=== PATIENT | female | born 1965 | race African-American/Black ===

== ENCOUNTER → 2017-06-09 09:38 | Outpatient (CLI) | payer MEDICAID ==
[2015-09-24 10:34] VITALS: BMI 28.7
[~2017-06-09 09:38] MED LIST: ADVIL PM CAPLET1 TAB PO; ELIQUIS2.5 MG PO; MS CONTIN15 MG PO; MULTI-DAY VITAM1 TAB PO; OXYCODONE HCL5 MG PO; ZESTRIL20 MG PO
== END | disposition home or self-care (01) ==
LOC: D.MAMMO 06-08 15:00
DX: Z12.31 Encounter for screening mammogram for malignant neoplasm of breast (principal)

== ENCOUNTER → 2017-06-30 15:22 | Outpatient (CLI) | payer MEDICAID ==
[2015-09-24 10:34] VITALS: BMI 28.7
[~2017-06-30 15:22] MED LIST changes: +ATARAX 25 MG TA25 MG PO; +DURICEF500 MG PO; +HYDROCODONE-APA1 TAB PO; +ZOFRAN ODT4 MG/UDTAB PO
== END | disposition home or self-care (01) ==
LOC: D.LABREF 15:22
DX: M19.011 Primary osteoarthritis, right shoulder (principal); Z11.8 Encounter for screening for other infectious and parasitic diseases

== ENCOUNTER 2017-07-20 04:55 | Inpatient (IN) | payer MEDICAID ==
[2017-07-15 14:47] LABS: BASOPHILS 0.4 % (0-2); EOSINOPHILS 2.4 % (0-7); HEMATOCRIT 37.6 % (36.0-48.0); IMMATURE GRANULOCYTES 0.4 % (0-5); LYMPHOCYTES 40.6 % (15-50); MCH 28.5 pg (26.0-34.0); MCHC 31.9 g/dL (31.0-37.0); MCV 89.3 fL (80.0-100.0); MEAN PLATELET VOLUME 10.8 fL (7.4-10.4); MONOCYTES 7.8 % (2-11); NEUTROPHILS 48.4 % (40-80); PLATELET COUNT 292 10x3/uL (130-400); RBC 4.21 10x6/uL (4.00-5.40); RDW 14.3 % (11.5-14.5)
[2017-07-15 14:52] LABS: APPEARANCE CLEAR (CLEAR); BILIRUBIN NEGATIVE (NEGATIVE); COLOR YELLOW (YELLOW); GLUCOSE NEGATIVE (NEGATIVE); KETONE NEGATIVE (NEGATIVE); NITRITE NEGATIVE (NEGATIVE); PROTEIN NEGATIVE (NEGATIVE); UROBILINOGEN NORMAL (NORMAL)
[2017-07-15 14:54] LABS: AMORPHOUS SEDIMENT <1+ /lpf (NONE SEEN); APTT 26.6 SECONDS (22.8-39.4); BACTERIA FEW /hpf (NONE SEEN); INR 0.96 (0.85-1.17); MUCUS <1+ /lpf (NONE SEEN); PROTIME 12.7 SECONDS (11.6-15.0); RED CELLS - URINE 0-5 /hpf (0-5); WHITE CELLS - URINE 0-5 /hpf (0-5)
[2017-07-15 14:56] LABS: CALC OSMOLALITY 281 mosm/kg (275-300); CALCIUM 8.9 mg/dL (8.5-10.1); CARBON DIOXIDE 27.6 mmol/L (21.0-32.0); CHLORIDE - SERUM 105 mmol/L (98-107); CREATININE - SERUM 0.7 mg/dL (0.6-1.3); GLUCOSE 90 mg/dL (74-106); POTASSIUM - SERUM 3.8 mmol/L (3.5-5.1); SODIUM 142 mmol/L (136-145); UREA NITROGEN 9 mg/dL (7-18); eGFR NON AFRICAN AMERICAN > 90 mL/min (90-120)
[~2017-07-20 04:55] MED LIST changes: -ATARAX 25 MG TA25 MG PO; -DURICEF500 MG PO; -HYDROCODONE-APA1 TAB PO; -ZOFRAN ODT4 MG/UDTAB PO
[2017-07-20 06:21] VITALS: BP 143/104; BMI 28.3
[2017-07-20 06:27] LABS: HCG URINE NEGATIVE (NEGATIVE)
[2017-07-20 11:34] VITALS: BP 141/93
[2017-07-20 13:10] VITALS: BP 141/93; BMI 28.3
--- NOTE | 2017-07-20 13:13 | OP ---
PATIENT NAME: MARAH LYNN MEDICAL RECORD: [id number] :63 LOCATION:D D.2211 ADMISSION DATE:07/20/17 SURGEON: JENNIFER MEJIA DO DATE OF OPERATION: 07/20/2017 PROCEDURE PERFORMED: Right total shoulder arthroplasty. PREOPERATIVE DIAGNOSIS: Right shoulder osteoarthritis. POSTOPERATIVE DIAGNOSIS: Right shoulder osteoarthritis. INDICATIONS: Ms. Lynn is a 51-year-old female that has been dealing with right shoulder pain for quite some time. She has tried injections, even had an MRI to ensure there was no rotator cuff tear, and was tired of it affecting her activities of daily living. She got to that point and wanted something done surgically. She was informed of the risks and benefits of a total shoulder arthroplasty and consented verbally to having it done in the office. SURGEON: Jennifer Mejia DO. BLOOD LOSS: Approximately 150 mL. COMPLICATIONS: None. DESCRIPTION OF PROCEDURE: The patient was given a block in the preoperative area by anesthesia then taken to the operative suite, laid in supine position, given general anesthetic and intubated, given 900 mg of clindamycin preoperatively. A timeout was performed. It was agreed it is the correct side, site, surgery and the correct patient. Once this was done, the patient was placed in the beach chair position and every bony prominence was well padded. The right arm was then prepped and draped in a sterile fashion, and the incision was marked out and an Ioban was placed over the outer edges of the drapes and as well in the axilla. Once this was done, incision commenced down in the deltopec interval; first, the skin with a knife, a 10 blade, and then under the skin with a Bovie. Careful coagulation was done down to the cephalic vein, which was taken laterally, and the clavipectoral fascia was then incised, and the very proximal centimeter of the bicep tendon was released off the humerus. The biceps tendon was then encountered and tenodesed to the stump of the pec tendon on the humeral side. The tenotomy was then performed on the biceps tendon. The biceps tendon was then followed up in the groove with the Bovie, and the rotator interval was opened. Once this was done, the subscap tendon was tagged with sutures and was peeled off of the lesser tuberosity with the Bovie. A Hohmann was placed in the inferior portion of the humeral neck, and to assist with external rotation and tension on the subscap, this was peeled off. Once this was performed, the osteophytes were taken off the humerus. The guide was placed. The humeral canal was found and the guide was used to cut the humeral head off of that, approximately 30 degrees of retroversion. Once the cut was made, the humerus was retracted posteriorly and the glenoid was exposed. The labrum was removed and all soft tissue around the glenoid to get a good view of the glenoid. Once this was done, it was checked to be a 30 in size and a small glenoid. Once this was done, the center pin was placed and overdrilled, and then the glenoid guide superior hole and then inferior tube holes were drilled at that time. It was then taken off and irrigated thoroughly. A trial was placed, and then seen to be in good position. Then, the screw holes were made a little bit deeper with a drill to ensure good cement fixation. Cement was then OPERATIVE REPORT [id number] MARAH LYNN mixed, and cement was placed in the holes on the glenoid save the central peg and placed on the implant itself, and this was entered into the glenoid and held while the cement hardened. Once the cement had hardened and the excess cement was removed from the wound, copious amounts of irrigation were done and then the humerus was presented in the wound, and sizing then began. We decided to use a stem due to bone quality. A #4 stem was seen to be the correct size, and we trialed a 46 head with a low offset and positioned it. This was trialed and seemed to have appropriate tension as it subluxed posterior 50% and bounced right back. Once this was done, drill holes were placed in the lesser tuberosity and sutures were placed through them. The implant was then implanted after irrigation had been done, and the shoulder was reduced. The subscap was then repaired with sutures not only to the bone, but also oversewn in the groove and the interval was also closed. This was all using #2 Ethibond. Once this was done, irrigation was performed and Cosmo was placed in the wound. The deltopec interval was then closed with a 0 Vicryl runner in a vadmtj-xn-erubo fashion, and the skin was then closed with 2-0 Vicryl in an inverted interrupted fashion, and Prineo Dermabond was placed over the skin, and then Adaptic, Telfa and Tegaderm were placed over the wound. The patient was placed in a sling and taken to recovery in stable condition. TRANSINT:[id number] Voice Confirmation ID: [id number] DOCUMENT ID: [id number] JENNIFER MEJIA DO at 1313 CC: [id number] DICTATION DATE: 07/20/17 1036 CONTRACT PREPARER: 07/20/[address] [facility] [address] [place] [id number]
[2017-07-20 20:00] VITALS: BP 127/87
[2017-07-21 04:00] VITALS: BP 127/84
[2017-07-21 05:46] LABS: HEMATOCRIT 33.6 % (36.0-48.0); HEMOGLOBIN 10.6 g/dL (12-16); MCH 28.3 pg (26.0-34.0); MCHC 31.5 g/dL (31.0-37.0); MCV 89.8 fL (80.0-100.0); RBC 3.74 10x6/uL (4.00-5.40); RDW 14.3 % (11.5-14.5); WBC 6.8 10x3/uL (4.8-10.8)
[2017-07-21 08:33] VITALS: BP 131/87
[2017-07-21 12:27] VITALS: BP 121/80
[2017-07-21 17:23] VITALS: BP 146/78
[2017-07-21 20:00] VITALS: BP 138/94
[2017-07-22 04:00] VITALS: BP 155/100
[2017-07-22 05:24] LABS: HEMATOCRIT 29.4 % (36.0-48.0); HEMOGLOBIN 9.6 g/dL (12-16); MCH 29.5 pg (26.0-34.0); MCHC 32.7 g/dL (31.0-37.0); MCV 90.5 fL (80.0-100.0); MEAN PLATELET VOLUME 10.9 fL (7.4-10.4); RBC 3.25 10x6/uL (4.00-5.40); RDW 14.1 % (11.5-14.5); WBC 6.2 10x3/uL (4.8-10.8)
[2017-07-22 08:09] VITALS: BP 141/93
[2017-07-22 12:28] VITALS: BP 157/97
[2017-07-22 15:47] VITALS: BP 137/92
[2017-07-22] MEDS ORDERED: HYDROCODONE-APA1 TAB PO (17:51)
[2017-07-22] MEDS ORDERED: ZOFRAN ODT4 MG/UDTAB PO (17:52)
[2017-07-22] MEDS ORDERED: ATARAX 25 MG TA25 MG PO (17:52)
[2017-07-22] MEDS ORDERED: DURICEF500 MG PO (17:52)
== END 2017-07-22 18:56 | disposition home or self-care (01) | DRG 483 ==
LOC: D.SDCHOLD 04:55 → D.MS 11:20
PROVIDERS: ADMIT Orthopaedic Surgery
PROC: 0RRJ0JZ Replacement of Right Shoulder Joint with Synthetic Substitute, Open Approach (ICD-10-PCS; principal; 2017-07-20 07:30)
DX: M19.011 Primary osteoarthritis, right shoulder (principal); I10 Essential (primary) hypertension; D64.9 Anemia, unspecified

== ENCOUNTER → 2017-11-25 18:06 | Outpatient (CLI) | payer MEDICAID ==
[~2017-11-25 18:06] MED LIST changes: +ATARAX 25 MG TA25 MG PO; +DURICEF500 MG PO; +HYDROCODONE-APA1 TAB PO; +ZOFRAN ODT4 MG/UDTAB PO
== END | disposition home or self-care (01) ==
LOC: D.MAMMO 14:30
DX: R92.8 Other abnormal and inconclusive findings on diagnostic imaging of breast (principal)

== ENCOUNTER → 2018-06-27 11:22 | Outpatient (CLI) | payer MEDICAID ==
[~2018-06-27 11:22] MED LIST changes: +DESERYL50 M2 PO; +ESTRACE1 MG PO
== END | disposition home or self-care (01) ==
LOC: D.LABREF 11:22
DX: M17.12 Unilateral primary osteoarthritis, left knee (principal); Z11.8 Encounter for screening for other infectious and parasitic diseases

== ENCOUNTER 2018-08-03 10:00 | Inpatient (IN) | payer MEDICAID ==
[~2018-08-03] VITALS: Ht 180.3 cm; Wt 90.9 kg
--- NOTE | ~2018-08-03 | MORECARE ---
CASE MANAGEMENT DISCHARGE SUMMARY PATIENT: MARAH HODGES UNIT: [id number] ADM DATE: 08/09/18 AGE: 52 : 63 SEX: F ROOM/BED: D.2213 AUTHOR: STEPHANI BARBOZA PHYSICIAN: REFERRING PHYSICIAN: JENNIFER MEJIA DO DATE OF SERVICE: 08/10/18 Discharge Plan Patient Name: MARAH HODGES [facility] [facility] 1965 Planned Disposition: Home Anticipated Discharge Date: Discharge Date: Expected LOS: Initial Reviewer: [email or web address] Initial Review Date: 08/09/2018 Generated: 08/10/18 4:03 pm Patient Name: MARAH HODGES Page 22598 at 1503 All edits/amendments must be made on the electronic document DICTATION DATE: 08/10/18 150 BOX INSPECTOR: FREDERICK 08/10/18 150 RPT#: [id number] DC DATE: STATUS: ADM IN [facility] [address] [place] [address] END OF REPORT
--- NOTE | ~2018-08-03 | MORECARE ---
CASE MANAGEMENT DISCHARGE SUMMARY PATIENT: MARAH HODGES UNIT: [id number] ADM DATE: 08/09/18 AGE: 52 : 63 SEX: F ROOM/BED: D.2213 AUTHOR: JABARI,DOC PHYSICIAN: REFERRING PHYSICIAN: JENNIFER MEJIA DO DATE OF SERVICE: 08/10/18 Discharge Plan Patient Name: MARAH HODGES Facility: [facility]:[place] : 1965 Planned Disposition: Home Anticipated Discharge Date: Discharge Date: Expected LOS: Initial Reviewer: [email or web address] Initial Review Date: 08/09/2018 Generated: 08/10/18 4:19 pm Comments DCP- Discharge Planning Updated by [email or web address]: Carolyn Novoa on 08/10/18 2:[address] OP PT APPT MADE WITH [facility] WITH [facility] FOR WednesdayJul AT 1:15 DCP- Discharge Planning Updated by [email or web address]: Carolyn Novoa on 08/10/18 2:[address] Patient Name: MARAH HODGES Admission Status: Elective Accout number: [id number] Admission Date: 08-09-2018 : 1965 Admission Diagnosis:UNILATERAL PRIMARY OSTEOARTHRITIS, LEFT KNEE Attending: JENNIFER MEJIA Current LOS: 1 Anticipated DC Date: Planned Disposition: Home Primary Insurance: MEDICAID [place] Discharge Planning Comments: CM met with patient to assess discharge planning needs. Patient lives independently at home with her and plans to return there at discharge. Her Shane will be the one to take her home. There are 3 steps to enter in her home. Her DME has been delivered to home already. (Walker, 3 in 1 BSC, cooling machine & CPM) She would like to do her OP PT at [facility] on [place]. I will set that up prior to DC. CM will continue to follow and assist with dc planning Property Maintenance Technician: Carolyn Novoa DCPIA - Discharge Planning Initial Assessment Updated by [email or web address]: Carolyn Novoa on 08/10/18 3:04 pm * Is the patient Alert and Oriented? Yes * How many steps to enter\exit or inside your home? * PCP MONIE * Pharmacy [facility] * Preadmission Environment Home with Family * ADLs Independent * Equipment Bedside Commode Rolling Walker * Other Equipment CPM COOLING MACHINE * List name and contact numbers for known caregivers / representatives who currently or will assist patient after discharge: AUDELIA () [phone] * Verbal permission to speak to the caregivers and representatives has been obtained from the patient. N/A * Community resources currently utilized None * Additional services required to return to the preadmission environment? Yes * Can the patient safely return to the preadmission environment? Yes * Has this patient been hospitalized within the prior 30 days at any hospital? No Last DP export: 08/10/18 2:11 Patient Name: MARAH HODGES Page [id number] at 1519 All edits/amendments must be made on the electronic document DICTATION DATE: 08/10/181518 MAILING MANAGER: FREDERICK 08/10/181518 RPT#: [id number] DC DATE: STATUS: ADM IN [facility] [address] [place] [address] END OF REPORT
--- NOTE | ~2018-08-03 | MORECARE ---
CASE MANAGEMENT DISCHARGE SUMMARY PATIENT: MARAH HODGES UNIT: [id number] ADM DATE: 08/09/18 AGE: 52 : 63 SEX: F ROOM/BED: D.2213 AUTHOR: JABARI,DOC PHYSICIAN: REFERRING PHYSICIAN: JENNIFER MEJIA DO DATE OF SERVICE: 08/10/18 Discharge Plan Patient Name: MARAH HODGES Facility: [facility]:[place] : 1965 Planned Disposition: Home Anticipated Discharge Date: Discharge Date: Expected LOS: Initial Reviewer: [email or web address] Initial Review Date: 08/09/2018 Generated: 08/10/18 4:11 pm Comments DCP- Discharge Planning Updated by [email or web address]: Carolyn Novoa on 08/10/18 2:[address] Patient Name: MARAH HODGES Admission Status: Elective Accout number: [id number] Admission Date: 08-09-2018 : 1965 Admission Diagnosis:UNILATERAL PRIMARY OSTEOARTHRITIS, LEFT KNEE Attending: JENNIFER MEJIA Current LOS: 1 Anticipated DC Date: Planned Disposition: Home Primary Insurance: MEDICAID [place] Discharge Planning Comments: CM met with patient to assess discharge planning needs. Patient lives independently at home with her and plans to return there at discharge. Her Shane will be the one to take her home. There are 3 steps to enter in her home. Her DME has been delivered to home already. (Walker, 3 in 1 BSC, cooling machine & CPM) She would like to do her OP PT at [facility] on . I will set that up prior to DC. CM will continue to follow and assist with dc planning Artist Scientific: Carolyn Novoa DCPIA - Discharge Planning Initial Assessment Updated by [email or web address]: Carolyn Novoa on 08/10/18 3:04 pm * Is the patient Alert and Oriented? Yes * How many steps to enter\exit or inside your home? * PCP MONIE * Pharmacy [facility] * Preadmission Environment Home with Family * ADLs Independent * Equipment Bedside Commode Rolling Walker * Other Equipment CPM COOLING MACHINE * List name and contact numbers for known caregivers / representatives who currently or will assist patient after discharge: AUDELIA () [phone] * Verbal permission to speak to the caregivers and representatives has been obtained from the patient. N/A * Community resources currently utilized None * Additional services required to return to the preadmission environment? Yes * Can the patient safely return to the preadmission environment? Yes * Has this patient been hospitalized within the prior 30 days at any hospital? No Last DP export: 08/10/18 2:03 Patient Name: MARAH HODGES Page 44062 at 1511 All edits/amendments must be made on the electronic document DICTATION DATE: 08/10/181510 AMBULATORY CARE: FREDERICK 08/10/181510 RPT#: [id number] CT DATE: STATUS: ADM IN [facility] [address] [place] [address] END OF REPORT
--- NOTE | ~2018-08-03 | OP ---
PATIENT NAME: MARAH LYNN MEDICAL RECORD: [id number] :63 LOCATION:D.MS Rodriguez2213 ADMISSION DATE:08/09/18 SURGEON: MILES MEJIA DO DATE OF OPERATION: 08/09/2018 PROCEDURE PERFORMED: Left total knee arthroplasty. The components were Biomet Vanguard cruciate retaining 62.5 left femur, 71 tibia, a 31 patella, and a 12 anterior stabilized E-poly. PREOPERATIVE DIAGNOSIS: Severe end-stage left knee osteoarthritis. POSTOPERATIVE DIAGNOSIS: Severe end-stage left knee osteoarthritis. INDICATIONS: Ms. Lynn is a 52-year-old female who had a right knee done some years ago and the left knee has been getting worse and worse. She is tired of dealing with the pain, said she can hardly ambulate without it being painful. She has tried injections and all manner of nonoperative management for pain relief and she is tired of this affecting her activities of daily living. She is aware of the risks and benefits of the procedure including infection, bleeding, damage to nerves and vessels, need for further surgery, fracture, blood clots, and even and she consented to the procedure. SURGEON: Miles Mejia DO ALLIGATOR HUNTER: Avery Teresa, advanced nurse practitioner DESCRIPTION OF PROCEDURE: The patient was given a block by anesthesia in the preoperative area, taken to the operative suite, laid in supine position, given general anesthetic and 80 units of gentamicin and 2 grams of Ancef preoperatively. The left lower extremity was then prepped and draped in a sterile fashion. A timeout was performed. Everyone was in agreement with the correct side, site, patient, and procedure. An incision then began in the midline in the anterior knee down to the capsule. New blade was used. Coagulation was done with Aquamantys throughout the procedure. A new blade was used in medial parapatellar approach, a capsulotomy was done. At that time, the fat pad was partially removed. The patella was then everted and milled down in preparation for the patellar poly implant. The knee was then flexed and then the femur was drilled into the intramedullary canal. The distal femur was then cut and then the tibia was exposed and cut. Once the tibia was cut, the femur was measured to be 62.5 and a 4-in-1 cutting block was put into place. This was cut after enoch wing was used to ensure it did not notch. Once 4-in-1 cutting block was done, the bone was removed and they have been cut. Tibia was exposed and seemed to be 71 tray. The menisci had been removed prior to this and Aquamantys was used to coagulate the medial and lateral genicular arteries. The tibia was then drilled and punched and cemented into place and packed it twice and the excess cement was removed. Once the excess cement was removed, the femur was put on and the 10 poly was put in between them. The knee was brought to extension. The rotation of the tibia had been marked prior to implantation. The patella was then drilled and cemented into place and held. While the cement dried, thorough irrigation was done of the knee, more than 2 liters of irrigation were put into the knee. At that time, 3 liters total throughout the procedure of irrigation and then trialed once the cement had dried and PCL was extremely tight, pulling the femur back into flexion popping the poly out, so the PCL was partially released. This allowed the femur to flex much easier without popping the poly out and being so tight. Thus, a 12 poly was put in OPERATIVE REPORT [id number] MARAH LYNN to give stability for the partial resection of the PCL. The tray locking mechanism was then put in for the tibial tray poly and then irrigation was done one more time and any bleeding was coagulated. Surgicel beads were placed into the wound in the gutters and tobramycin, vancomycin were placed into the wound as well into the knee joint. The capsule was then closed with #2 Ethibond in xrfaol-dz-xlznw fashion and a Stratafix was ran on the capsule by Avery Teresa APN. The skin was then closed after antibiotic was placed on top of the capsule skin was then closed with 2-0 Vicryl in inverted interrupted fashion. A ZipLine was placed on the skin. Adaptic, 4 x 4's, ABD, Webril and [place] wrap and VELMA hose stocking was placed up to the knee. The patient was awakened and taken to recovery in stable condition. Blood loss approximately 150 mL. COMPLICATIONS: None. TRANSINT:[id number] Voice Confirmation ID: [id number] DOCUMENT ID: [id number] 08/30/2018 Edited to add Avery Teresa APN into body of report, dm. MILES MEJIA DO at 1442 CC: [id number] DICTATION DATE: 08/09/18 1245 LEASE OUT MAN: 08/09/18 1424 DIS IN 08/12/18 [facility] [address] [place] [address]
--- NOTE | ~2018-08-03 | MORECARE ---
CASE MANAGEMENT DISCHARGE SUMMARY PATIENT: MARAH HODGES UNIT: [id number] ADM DATE: 08/09/18 AGE: 52 : 63 SEX: F ROOM/BED: D.2213 AUTHOR: JABARIDOC PHYSICIAN: REFERRING PHYSICIAN: JENNIFER MEJIA DO DATE OF SERVICE: 08/17/18 Discharge Plan Patient Name: MARAH HODGES Facility: [facility]:[place] : 1965 Planned Disposition: Home Anticipated Discharge Date: Discharge Date: 08/12/2018 Expected LOS: 0 Initial Reviewer: [email or web address] Initial Review Date: 08/09/2018 Generated: 08/17/18 10:09 am Comments DCP- Discharge Planning Updated by [id number]: Carolyn Novoa on 08/10/18 2:[address] OP PT APPT MADE WITH [facility] WITH [facility] FOR WednesdayJul AT 1:15 DCP- Discharge Planning Updated by [email or web address]: Carolyn Novoa on 08/10/18 2:[address] Patient Name: MARAH HODGES Admission Status: Elective Accout number: [id number] Admission Date: 08-09-2018 : 1965 Admission Diagnosis:UNILATERAL PRIMARY OSTEOARTHRITIS, LEFT KNEE Attending: JENNIFER MEJIA Current LOS: 1 Anticipated DC Date: Planned Disposition: Home Primary Insurance: MEDICAID [place] Discharge Planning Comments: CM met with patient to assess discharge planning needs. Patient lives independently at home with her and plans to return there at discharge. Her Shane will be the one to take her home. There are 3 steps to enter in her home. Her DME has been delivered to home already. (Walker, 3 in 1 BSC, cooling machine & CPM) She would like to do her OP PT at [facility] on . I will set that up prior to DC. CM will continue to follow and assist with dc planning Padder Cushion: Carolyn Novoa DCPIA - Discharge Planning Initial Assessment Updated by [email or web address]: Carolyn Novoa on 08/10/18 3:04 pm * Is the patient Alert and Oriented? Yes * How many steps to enter\exit or inside your home? * PCP MONIE * Pharmacy [facility] [address] * Preadmission Environment Home with Family * ADLs Independent * Equipment Bedside Commode Rolling Walker * Other Equipment CPM COOLING MACHINE * List name and contact numbers for known caregivers / representatives who currently or will assist patient after discharge: AUDELIA () [phone] * Verbal permission to speak to the caregivers and representatives has been obtained from the patient. N/A * Community resources currently utilized None * Additional services required to return to the preadmission environment? Yes * Can the patient safely return to the preadmission environment? Yes * Has this patient been hospitalized within the prior 30 days at any hospital? No Last DP export: 08/10/18 2:19 Patient Name: MARAH HODGES Page 38996 at 0909 All edits/amendments must be made on the electronic document DICTATION DATE: 08/17/18907 DEHYDRATING PRESS OPERATOR: FREDERICK 08/17/18907 RPT#: [id number] DC DATE:08/12/18 STATUS: DIS IN [facility] [address] [place] [address] END OF REPORT
[2018-08-03 11:00] LABS: BASOPHILS 0.2 % (0-2); EOSINOPHILS 1.2 % (0-7); HEMATOCRIT 36.6 % (36.0-48.0); HEMOGLOBIN 11.8 g/dL (12-16); IMMATURE GRANULOCYTES 0.2 % (0-5); LYMPHOCYTES 30.7 % (15-50); MCH 28.9 pg (26.0-34.0); MCHC 32.2 g/dL (31.0-37.0); MCV 89.7 fL (80.0-100.0); MONOCYTES 3.9 % (2-11); NEUTROPHILS 63.8 % (40-80); RBC 4.08 10x6/uL (4.00-5.40); WBC 4.8 10x3/uL (4.8-10.8)
[2018-08-03 11:05] LABS: PLATELET COUNT 316 10x3/uL (130-400)
[2018-08-03 11:24] LABS: APPEARANCE HAZY (CLEAR); BACTERIA MODERATE /hpf (NONE SEEN); BILIRUBIN NEGATIVE (NEGATIVE); COLOR YELLOW (YELLOW); EPITHELIAL CELLS 0-5 /hpf (0-5); GLUCOSE NEGATIVE (NEGATIVE); KETONE NEGATIVE (NEGATIVE); NITRITE NEGATIVE (NEGATIVE); PROTEIN NEGATIVE (NEGATIVE); SPECIFIC GRAVITY 1.015 (1.005-1.020); UROBILINOGEN NORMAL (NORMAL); WHITE CELLS - URINE 0-5 /hpf (0-5)
[2018-08-03 11:25] LABS: MUCUS <1+ /lpf (NONE SEEN); RED CELLS - URINE RARE /hpf (0-5)
[2018-08-03 11:26] LABS: CALC OSMOLALITY 277 mosm/kg (275-300); CALCIUM 8.8 mg/dL (8.5-10.1); CARBON DIOXIDE 28.4 mmol/L (21.0-32.0); CHLORIDE - SERUM 105 mmol/L (98-107); CREATININE - SERUM 0.8 mg/dL (0.6-1.3); GLUCOSE 101 mg/dL (74-106); POTASSIUM - SERUM 3.5 mmol/L (3.5-5.1); SODIUM 141 mmol/L (136-145); UREA NITROGEN 5 mg/dL (7-18); eGFR NON AFRICAN AMERICAN 79 mL/min (90-120)
[2018-08-03 11:27] LABS: INR 1.04 (0.85-1.17); PROTIME 13.2 SECONDS (11.6-15.0)
[2018-08-03 11:28] LABS: APTT 27.9 SECONDS (22.8-39.4)
[2018-08-09] VITALS (12 sets, daily range): BP systolic 120–142; BP diastolic 81–113; Ht 180.3 cm; Wt 90.9 kg
[2018-08-09 08:35] LABS: HCG URINE NEGATIVE (NEGATIVE)
[2018-08-10 03:39] VITALS: BP 126/87
[2018-08-10 07:04] LABS: HEMATOCRIT 32.2 % (36.0-48.0); HEMOGLOBIN 10.2 g/dL (12-16); MCH 28.3 pg (26.0-34.0); MCHC 31.7 g/dL (31.0-37.0); MCV 89.4 fL (80.0-100.0); MEAN PLATELET VOLUME 10.1 fL (7.4-10.4); RBC 3.6 10x6/uL (4.00-5.40); RDW 14.5 % (11.5-14.5); WBC 8.2 10x3/uL (4.8-10.8)
[2018-08-10 09:03] VITALS: BP 139/92
[2018-08-10 12:36] VITALS: BP 135/94
[2018-08-10 16:52] VITALS: BP 143/96
[2018-08-10 20:00] VITALS: BP 133/94
[2018-08-11 05:25] LABS: HEMATOCRIT 30.3 % (36.0-48.0); HEMOGLOBIN 9.6 g/dL (12-16); MCH 28.3 pg (26.0-34.0); MCHC 31.7 g/dL (31.0-37.0); MCV 89.4 fL (80.0-100.0); MEAN PLATELET VOLUME 10.8 fL (7.4-10.4); RBC 3.39 10x6/uL (4.00-5.40); RDW 14.5 % (11.5-14.5)
[2018-08-11 05:26] LABS: WBC 6.1 10x3/uL (4.8-10.8)
[2018-08-11 08:57] VITALS: BP 165/98
[2018-08-11 12:46] VITALS: BP 148/94
[2018-08-11 17:26] VITALS: BP 150/95
[2018-08-11 21:55] VITALS: BP 138/89
[2018-08-12 06:37] VITALS: BP 141/93
[2018-08-12 09:12] VITALS: BP 148/91
[2018-08-12] MEDS ORDERED: ELIQUIS2.5 MG PO (10:00)
[2018-08-12] MEDS ORDERED: NORCO 10-325 TA1 TAB PO (10:01)
[2018-08-12] MEDS ORDERED: KEFLEX500 MG PO (10:01)
[2018-08-12] MEDS ORDERED: VISTARIL50 MG PO (10:02)
[2018-08-12] MEDS ORDERED: ZOFRAN ODT4 MG/UDTAB PO (10:02)
== END 2018-08-12 12:11 | disposition home or self-care (01) | DRG 470 ==
LOC: D.SDCHOLD 10:00 → D.MS 08-09 07:05 → D.SDCHOLD 08-09 07:30 → D.MS 08-09 13:18
PROVIDERS: Orthopaedic Surgery
PROC: 0SRD0JZ Replacement of Left Knee Joint with Synthetic Substitute, Open Approach (ICD-10-PCS; principal; 2018-08-09 10:00)
DX: M17.12 Unilateral primary osteoarthritis, left knee (principal); I10 Essential (primary) hypertension

== ENCOUNTER → 2018-11-16 09:15 | Outpatient (CLI) | payer MEDICAID ==
[2018-08-09 13:57] VITALS: BMI 27.9
[~2018-11-16 09:15] MED LIST changes: +KEFLEX500 MG PO; +NORCO 10-325 TA1 TAB PO; +VISTARIL50 MG PO
== END | disposition home or self-care (01) ==
LOC: D.MRI 09:15
DX: M54.16 Radiculopathy, lumbar region (principal)

== ENCOUNTER 2019-03-16 19:00 | Outpatient (CLI) | payer MEDICAID ==
[2018-08-09 13:57] VITALS: BMI 27.9
== END 2019-03-16 23:59 | disposition home or self-care (01) ==
LOC: D.MAMMO 19:00
PROVIDERS: ATTEND Nurse Practitioner
DX: Z12.31 Encounter for screening mammogram for malignant neoplasm of breast (principal)

== ENCOUNTER → 2019-12-12 12:05 | Outpatient (CLI) | payer MEDICAID ==
[2018-08-09 13:57] VITALS: BMI 27.9
== END | disposition home or self-care (01) ==
LOC: D.RAD 12:05
PROVIDERS: ATTEND Nurse Practitioner
DX: R05 Cough (principal)